=== PATIENT | female | born 1980 | race Caucasian/White ===

== ENCOUNTER 2024-05-04 21:06 | Emergency (ER) | payer BC ==
[2024-05-04] MEDS ORDERED: Zofran 4 MG/2 ML VIAL ONE (21:29)
[2024-05-04] MEDS ORDERED: Sodium Chloride 0.9% 1000 ML 1,000 ML ONE (21:30)
[2024-05-04] MEDS ORDERED: SUBLIMAZE 100 MCG/2 ML ONE (21:30)
[2024-05-04] MEDS: SUBLIMAZE 100 MCG/2 ML IV ONE (21:32)
[2024-05-04] MEDS: Sodium Chloride 0.9% 1000 ML 1,000 ML IV STA (21:32)
[2024-05-04] MEDS: Zofran 4 MG/2 ML VIAL IV ONE (21:32)
[2024-05-04 21:37] LABS: Absolute Neutrophil Ct (ANC) 6.06 x10^3/uL (1.56-6.13); BASOPHIL % 0.3 % (0.1-1.2); Basophil (Absolute #) 0.03 x10^3/uL (0.01-0.08); Eosinophil % 1.6 % (0.7-5.8); Eosinophil (Absolute #) 0.14 x10^3/uL (0.04-0.36); Hematocrit 39.2 % (34.1-44.9); Hemoglobin 12.6 g/dL (11.2-15.7); IMMATURE GRAN # 0.03 x10^3u/L (0.001-0.031); IMMATURE GRAN % 0.3 % (0.001-0.429); Lymphocyte (Absolute #) 2.08 x10^3/uL (1.18-3.74); Lymphocytes % 23.1 % (19.3-51.7); Mean Cell Volume 88.3 fL (79.4-94.8); Mean Corpuscular Hemoglobin 28.4 pg (25.6-32.2); Mean Corpuscular Hgb Concent. 32.1 g/dL (32.2-35.5); Mean Platelet Volume 8.9 fL (9.4-12.3); Monocyte (Absolute #) 0.65 x10^3/uL (0.24-0.86); Monocytes % 7.2 % (4.7-12.5); Neutrophil % 67.5 % (34.0-71.1); Platelet Count 256 x10^3/uL (182-369); Red Blood Count 4.44 x10^6/uL (3.93-5.22); Red Cell Distribution Width 12.8 % (11.7-14.4)
[2024-05-04 22:01] LABS: HCG SERUM TEST NEGATIVE (NEGATIVE)
[2024-05-04 22:10] LABS: ALBUMIN 3.8 g/dL (3.5-5.0); ANION GAP 15.1 MEQ/L (5-15); BILIRUBIN,TOTAL 0.4 mg/dL (0.2-1.3); Calcium 8.9 mg/dL (8.4-10.2); Creatinine 1 0.81 mg/dL (0.52-1.04); EST GLOMERULAR FILTRATION RATE 92.9 ML/MIN; NT PRO BNPII 90.3 pg/mL (<300); Potassium 3.8 mmol/L (3.5-5.1); Total Protein 7.1 g/dL (6.3-8.2)
[2024-05-04 23:16] LABS: Appearance Clear (Clear); Bacteria None Seen /HPF (None Seen); Bilirubin Negative (Negative); Blood Moderate (Negative); Epithelial Cells None Seen /HPF (None Seen); Glucose, Urine >=1000 mg/dL (Negative); Hyaline Casts NONE SEEN /LPF (0-2); Ketones Negative (Negative); Leukocyte Esterase Negative (Negative); Nitrite Negative (Negative); Ph 5.5 (4.6-8.0); Protein,Urine Dip Negative (Negative); Urobilinogen 0.2 mg/dL (0.2); WBC 0-2 /HPF (0-5)
[2024-05-04 23:22] LABS: ADD URINE CULTURE? NO (NO)
--- NOTE | 2024-05-05 00:12 | ERPHSYRPT ---
- History of Present Illness Time Seen by Provider: 05/04/24 21:07 Historian: patient Exam Limitations: no limitations Patient Subjective Stated Complaint: pt states she has been having chest pain all day. pt states pain to rt chest and back Triage Nursing Assessment: pt ambulated into the er; pt is axo x4; c/o chest pain; pt states 10/10 pain to rt side of chest and rt side of back; clear apical heart tones; pt states SOB; clear lung sounds in all lobes; no respiratory distress present; strong edilberto radial pulses; strong edilberto pedal pulses; good cap refill to all extremities; skin PDW; vitals wnl Physician History: 43 years old female with a history of hypertension, hyperlipidemia, morbid obesity presented in the ER with complaint of right-sided chest pain with radiation to the right back with occasional shortness of breath at times. Patient reports moderate to severe sharp pain with aggravation and movements and partial relief with being still. Also reports some pain on the right upper quadrant abdomen with associated nausea but no vomiting. No fever chills or cough reported. No history of coronary artery disease. Aspirin Treatment Today: unknown Allergies/Adverse Reactions: No Known Drug Allergies Allergy (Verified 05/04/24 21:07) Home Medications: Amlodipine Besylate 5 mg PO DAILY 05/04/24 [History] Gabapentin [Neurontin ] 300 mg PO BID 05/04/24 [History] Losartan/Hydrochlorothiazide [Losartan-Hctz 50-12.5 mg Tab] 1 each PO DAILY 05/04/24 [History] Metformin HCl 500 mg [Glucophage 500 MG] 500 mg PO BIDWM 05/04/24 [History] Norgestimate-Ethinyl Estradiol [D[place]hesne-Linyah] 1 each PO DAILY 05/04/24 [History] Hx Tetanus, Diphtheria Vaccination/Date Given: Yes Hx Influenza Vaccination/Date Given: Yes Hx Pneumococcal Vaccination/Date Given: No Immunizations Up to Date: No Travel Risk - International Travel Have you traveled outside of the country in past 3 weeks: No - Emerging Infectious Disease Are you exhibiting symptoms associated with any current EIDs: No - Review of Systems Constitutional: No Symptoms Eyes: No Symptoms Ears, Nose, & Throat: No Symptoms Respiratory: No Symptoms Cardiac: Chest Pain Abdominal/Gastrointestinal: Abdominal Pain, Nausea Genitourinary Symptoms: No Symptoms Musculoskeletal: Back Pain Skin: No Symptoms Neurological: No Symptoms Psychological: No Symptoms Hematologic/Lymphatic: No Symptoms Immunological/Allergic: No Symptoms - Past Medical History Pertinent Past Medical History: Yes Neurological History: Peripheral Neuropathy Cardiac History: Hypertension Endocrine Medical History: Diabetes Type II - Past Surgical History Past Surgical History: Yes Female Surgical History: Tubal Ligation - Female History Hx Last Menstrual Period: ONE MONTH Hx Now: (unkn) - Social History Smoking Status: Former smoker Exposure to second hand smoke: Yes Drug Use: none Patient Lives Alone: No - Social Determinants of Health Will the patient participate in the screening: Yes Do you worry about a steady place to live?: No Do you have any problems with any of the following?: No known problems In the past 12 months,have you had to go without utilities?: No Transportation Issues: No Has anyone in your support network made you feel unsafe?: No Have you or anyone in your house had to go without enough: No - Nursing Vital Signs Nursing Vital Signs: Initial Vital Signs Pulse Rate 88 05/04/24 21:06 Respiratory Rate 18 05/04/24 21:06 Blood Pressure 105/43 05/04/24 21:06 O2 Sat by Pulse Oximetry 98 05/04/24 21:06 Pain Scale Pain Intensity 5 - Physical Exam General Appearance: no apparent distress, alert Eye Exam: PERRL/EOMI Ears, Nose, Throat Exam: normal ENT inspection, pharynx normal Neck Exam: normal inspection, supple, full range of motion Respiratory Exam: normal breath sounds, chest tenderness (Right lower anterior chest wall, right upper quadrant and right lower posterior chest wall. No crepitus.), lungs clear Cardiovascular Exam: regular rate/rhythm, normal heart sounds Gastrointestinal/Abdomen Exam: soft, normal bowel sounds, tenderness (Right upper quadrant) Back Exam: normal inspection Extremity Exam: normal inspection, normal range of motion Neurologic Exam: alert, oriented x 3, cooperative Skin Exam: normal color SpO2 Interpretation: normal SpO2: 98 O2 Delivery: Room Air - Course EKG Interpreted by Me: RATE ([id number]), Sinus Rhythm, NORMAL AXIS, NORMAL INTERVALS, NORMAL QRS Ordered Tests: Medication Summary Discontinued Medications Generic Name Dose Route Start Last Admin Trade Name Freq PRN Reason Stop Dose Admin Fentanyl Citrate 50 mcg 05/04/24 21:23 05/04/24 21:32 Fentanyl Citrate 100 Mcg/2 Ml* Vial IV 05/04/24 21:24 50 mcg STAT ONE Administration Fentanyl Citrate Confirm 05/04/24 21:30 Fentanyl Citrate 100 Mcg/2 Ml* Vial Administered 05/04/24 21:31 Dose 100 mcg .ROUTE .STK-MED ONE Sodium Chloride 1,000 mls @ 999 mls/hr 05/04/24 21:23 05/04/24 22:46 Sodium Chloride 0.9% 1000 Ml IV 05/04/24 22:23 Infused .Q1H1M STA Infusion Sodium Chloride Confirm 05/04/24 21:30 Sodium Chloride 0.9% 1000 Ml Administered 05/04/24 21:31 Dose 1,000 mls @ ud .ROUTE .STK-MED ONE Ketorolac Tromethamine 30 mg 05/05/24 00:30 05/05/24 00:32 Ketorolac Tromethamine 30 Mg/Ml Inj IV 05/05/24 00:31 30 mg STAT ONE Administration Ketorolac Tromethamine Confirm 05/05/24 00:30 Ketorolac Tromethamine 30 Mg/Ml Inj Administered 05/05/24 00:31 Dose 30 mg .ROUTE .STK-MED ONE Ondansetron HCl 4 mg 05/04/24 21:23 05/04/24 21:32 Ondansetron Hcl 4 Mg/2 Ml Vial IV 05/04/24 21:24 4 mg STAT ONE Administration Ondansetron HCl Confirm 05/04/24 21:29 Ondansetron Hcl 4 Mg/2 Ml Vial Administered 05/04/24 21:30 Dose 4 mg .ROUTE .STK-MED ONE Lab/Rad Data: Laboratory Result Diagrams 05/04/24 21:30 05/04/24 21:30 Laboratory Results 05/05/24 05/04/24 05/04/24 Range/Units 00:26 23:00 21:36 WBC (3.98-10.04) x10^3/uL RBC (3.93-5.22) x10^6/uL Hgb (11.2-15.7) g/dL Hct (34.1-44.9) % MCV (79.4-94.8) fL MCH (25.6-32.2) pg MCHC (32.2-35.5) g/dL RDW (11.7-14.4) % Plt Count (182-369) x10^3/uL MPV (9.4-12.3) fL Gran % (34.0-71.1) % Immature Gran % (Auto) (0.001-0.429) % Nucleat RBC Rel Count (0.00-0.2) % Eos # (Auto) (0.04-0.36) x10^3/uL Immature Gran # (Auto) (0.001-0.031) x10^3u/L Absolute Lymphs (auto) (1.18-3.74) x10^3/uL Absolute Monos (auto) (0.24-0.86) x10^3/uL Absolute Nucleated RBC (0.00-0.012) x10^3u/L Lymphocytes % (19.3-51.7) % Monocytes % (4.7-12.5) % Eosinophils % (0.7-5.8) % Basophils % (0.1-1.2) % Absolute Granulocytes (1.56-6.13) x10^3/uL Basophils # (0.01-0.08) x10^3/uL D-Dimer 0.46 (0.0-0.50) mg/L Sodium (135-145) mmol/L Potassium (3.5-5.1) mmol/L Chloride (98-107) mmol/L Carbon Dioxide (22-30) mmol/L Anion Gap (5-15) MEQ/L BUN (7-17) mg/dL Creatinine (0.52-1.04) mg/dL Estimated GFR ML/MIN Glucose (74-106) mg/dL Calcium (8.4-10.2) mg/dL Total Bilirubin (0.2-1.3) mg/dL AST (14-36) U/L ALT (0-35) U/L Alkaline Phosphatase (38-126) U/L Troponin 0.00 (0.00-0.03) ng/mL NT-Pro-B Natriuret Pep (<300) pg/mL Serum Total Protein (6.3-8.2) g/dL Albumin (3.5-5.0) g/dL Lipase (23-300) U/L Serum HCG, Qual (NEGATIVE) Urine Color Yellow (Yellow) Urine Appearance Clear (Clear) Urine pH 5.5 (4.6-8.0) Ur Specific [place] 1.020 (1.005-1.030) Urine Protein Negative (Negative) Urine Glucose (UA) >=1000 A (Negative) mg/dL Urine Ketones Negative (Negative) Urine Blood Moderate A (Negative) Urine Nitrite Negative (Negative) Urine Bilirubin Negative (Negative) Urine Urobilinogen 0.2 (0.2) mg/dL Ur Leukocyte Esterase Negative (Negative) U Hyaline Cast (Auto) NONE SEEN (0-2) /LPF Urine Microscopic RBC 6-10 A (0-5) /HPF Urine Microscopic WBC 0-2 (0-5) /HPF Ur Epithelial Cells None Seen (None Seen) /HPF Uric Acid Crystals 11-25 A (None Seen) /HPF Urine Bacteria None Seen (None Seen) /HPF Urine Culture Reflexed NO (NO) 05/04/24 05/04/24 05/04/24 Range/Units 21:30 21:30 21:30 WBC (3.98-10.04) x10^3/uL RBC (3.93-5.22) x10^6/uL Hgb (11.2-15.7) g/dL Hct (34.1-44.9) % MCV (79.4-94.8) fL MCH (25.6-32.2) pg MCHC (32.2-35.5) g/dL RDW (11.7-14.4) % Plt Count (182-369) x10^3/uL MPV (9.4-12.3) fL Gran % (34.0-71.1) % Immature Gran % (Auto) (0.001-0.429) % Nucleat RBC Rel Count (0.00-0.2) % Eos # (Auto) (0.04-0.36) x10^3/uL Immature Gran # (Auto) (0.001-0.031) x10^3u/L Absolute Lymphs (auto) (1.18-3.74) x10^3/uL Absolute Monos (auto) (0.24-0.86) x10^3/uL Absolute Nucleated RBC (0.00-0.012) x10^3u/L Lymphocytes % (19.3-51.7) % Monocytes % (4.7-12.5) % Eosinophils % (0.7-5.8) % Basophils % (0.1-1.2) % Absolute Granulocytes (1.56-6.13) x10^3/uL Basophils # (0.01-0.08) x10^3/uL D-Dimer (0.0-0.50) mg/L Sodium 135 (135-145) mmol/L Potassium 3.8 (3.5-5.1) mmol/L Chloride 101 (98-107) mmol/L Carbon Dioxide 22 (22-30) mmol/L Anion Gap 15.1 H (5-15) MEQ/L BUN 18 H (7-17) mg/dL Creatinine 0.81 (0.52-1.04) mg/dL Estimated GFR 92.9 ML/MIN Glucose 308 H (74-106) mg/dL Calcium 8.9 (8.4-10.2) mg/dL Total Bilirubin 0.40 (0.2-1.3) mg/dL AST 35 (14-36) U/L ALT 28 (0-35) U/L Alkaline Phosphatase 53 (38-126) U/L Troponin 0.00 (0.00-0.03) ng/mL NT-Pro-B Natriuret Pep 90.3 (<300) pg/mL Serum Total Protein 7.1 (6.3-8.2) g/dL Albumin 3.8 (3.5-5.0) g/dL Lipase 154 (23-300) U/L Serum HCG, Qual NEGATIVE (NEGATIVE) Urine Color (Yellow) Urine Appearance (Clear) Urine pH (4.6-8.0) Ur Specific [place] (1.005-1.030) Urine Protein (Negative) Urine Glucose (UA) (Negative) mg/dL Urine Ketones (Negative) Urine Blood (Negative) Urine Nitrite (Negative) Urine Bilirubin (Negative) Urine Urobilinogen (0.2) mg/dL Ur Leukocyte Esterase (Negative) U Hyaline Cast (Auto) (0-2) /LPF Urine Microscopic RBC (0-5) /HPF Urine Microscopic WBC (0-5) /HPF Ur Epithelial Cells (None Seen) /HPF Uric Acid Crystals (None Seen) /HPF Urine Bacteria (None Seen) /HPF Urine Culture Reflexed (NO) 05/04/24 Range/Units 21:30 WBC 9.0 (3.98-10.04) x10^3/uL RBC 4.44 (3.93-5.22) x10^6/uL Hgb 12.6 (11.2-15.7) g/dL Hct 39.2 (34.1-44.9) % MCV 88.3 (79.4-94.8) fL MCH 28.4 (25.6-32.2) pg MCHC 32.1 L (32.2-35.5) g/dL RDW 12.8 (11.7-14.4) % Plt Count 256 (182-369) x10^3/uL MPV 8.9 L (9.4-12.3) fL Gran % 67.5 (34.0-71.1) % Immature Gran % (Auto) 0.3 (0.001-0.429) % Nucleat RBC Rel Count 0.0 (0.00-0.2) % Eos # (Auto) 0.14 (0.04-0.36) x10^3/uL Immature Gran # (Auto) 0.03 (0.001-0.031) x10^3u/L Absolute Lymphs (auto) 2.08 (1.18-3.74) x10^3/uL Absolute Monos (auto) 0.65 (0.24-0.86) x10^3/uL Absolute Nucleated RBC 0.00 (0.00-0.012) x10^3u/L Lymphocytes % 23.1 (19.3-51.7) % Monocytes % 7.2 (4.7-12.5) % Eosinophils % 1.6 (0.7-5.8) % Basophils % 0.3 (0.1-1.2) % Absolute Granulocytes 6.06 (1.56-6.13) x10^3/uL Basophils # 0.03 (0.01-0.08) x10^3/uL D-Dimer (0.0-0.50) mg/L Sodium (135-145) mmol/L Potassium (3.5-5.1) mmol/L Chloride (98-107) mmol/L Carbon Dioxide (22-30) mmol/L Anion Gap (5-15) MEQ/L BUN (7-17) mg/dL Creatinine (0.52-1.04) mg/dL Estimated GFR ML/MIN Glucose (74-106) mg/dL Calcium (8.4-10.2) mg/dL Total Bilirubin (0.2-1.3) mg/dL AST (14-36) U/L ALT (0-35) U/L Alkaline Phosphatase (38-126) U/L Troponin (0.00-0.03) ng/mL NT-Pro-B Natriuret Pep (<300) pg/mL Serum Total Protein (6.3-8.2) g/dL Albumin (3.5-5.0) g/dL Lipase (23-300) U/L Serum HCG, Qual (NEGATIVE) Urine Color (Yellow) Urine Appearance (Clear) Urine pH (4.6-8.0) Ur Specific [place] (1.005-1.030) Urine Protein (Negative) Urine Glucose (UA) (Negative) mg/dL Urine Ketones (Negative) Urine Blood (Negative) Urine Nitrite (Negative) Urine Bilirubin (Negative) Urine Urobilinogen (0.2) mg/dL Ur Leukocyte Esterase (Negative) U Hyaline Cast (Auto) (0-2) /LPF Urine Microscopic RBC (0-5) /HPF Urine Microscopic WBC (0-5) /HPF Ur Epithelial Cells (None Seen) /HPF Uric Acid Crystals (None Seen) /HPF Urine Bacteria (None Seen) /HPF Urine Culture Reflexed (NO) - Progress Progress: improved Air Movement: good Progress Note: 05/05/24 01:34 43 years old is evaluated for right-sided chest pain with no obvious difficulty breathing. Patient has no history of coronary artery disease. EKG is normal sinus rhythm with no acute ischemic changes. She is given symptomatic treatment, on reevaluation her pain is much improved. Chest x-ray questionable right-sided airspace disease reviewed by me, official report is pending. Negative troponins. Patient has normal white count and fairly unremarkable chemistries. Because of her pain in the right upper quadrant as well I have obtained CT chest abdomen pelvis as well. CT chest is negative for PE or any other acute intrathoracic finding. CT abdomen pelvis showed cholelithiasis and hepatomegaly with no signs symptoms suggesting acute cholecystitis. Patient is feeling better on reevaluation after Toradol and fentanyl along with fluids. Second troponin is negative as well. Duration of pain and 2 negative troponin and CTs, pain does not seem cardiac, atypical for CAD, recommended outpatient follow-up. This pain could be biliary colic but no acute cholecystitis. Discussed signs symptoms of worsening needing return to ER which patient seems understanding. Stable for discharge. Blood Culture(s) Obtained: No Antibiotics given: No Counseled pt/family regarding: lab results, diagnosis, need for follow-up, rad results Medical Desision Making - Independent Historian Additional History obtained from: Spouse - Diagnostic Testing Diagnostic test were ordered, analyzed, and reviewed by me: Yes Radiological Interpretation: Interpreted by me, Reviewed by me, Teleradiologist Report - Risk of complications The pt has a mod risk of morbidity or mortality based on: Need for prescription drug management - Departure Departure Disposition: Home Clinical Impression: Atypical chest pain, Cholelithiasis Condition: Stable Critical Care Time: No Referrals: ISABELLA LUCIANO MD [Primary Care Provider] - Follow up with PCP 1 day DAX NICE [CONSULTING PHYSICIAN] - Follow up/PCP as directed (call for appointment) Instructions: Angina (DC), Chest Pain (DC) Additional Instructions: Follow-up with primary care/cardiology for reevaluation. Take Tylenol as needed. Return to ER for any worsening.
[2024-05-05] MEDS ORDERED: TORAdol 30 mg Injection ONE (00:30)
[2024-05-05] MEDS: TORAdol 30 mg Injection IV ONE (00:32)
[2024-05-05 01:02] VITALS: RESP 22
--- NOTE | 2024-05-05 01:11 | XRAY ---
CLINICAL HISTORY: ruq/rght side chest pain COMPARISON: None. TECHNIQUE: A CT scan of the abdomen and pelvis was performed with IV contrast. Coronal and sagittal reconstructive images were also obtained. One of the following dose-reduction techniques was utilized for this exam. Automated exposure control, adjustment of the mA and/or kV according to patient size, and use of iterative reconstruction. FINDINGS: Abdomen: The liver appears enlarged measuring 230 mm in craniocaudal dimension with diffusely reduced parenchymal attenuation representing fatty infiltration. No focal parenchymal abnormality. The portal vein, intrahepatic biliary radicals, and the bile ducts are normal. The spleen, pancreas, and adrenal glands are unremarkable. The kidneys are unremarkable. They are normal in size and shape. No calculi or hydronephrosis. The gallbladder is suboptimally distended with intraluminal gallstones. No evidence of pericholecystic fluid or fat stranding. The ascending colon, the transverse colon, the descending colon, and the visualized small bowel loops are unremarkable. The appendix is separately visualized and is normal in caliber without features of acute appendicitis There is no evidence of significant enlargement of the mesenteric or retroperitoneal lymph nodes. Pelvis: The urinary bladder is unremarkable. The rectosigmoid colon is unremarkable. The uterus and both ovaries appear grossly unremarkable. The pelvic vasculature is unremarkable. No evidence of pelvic lymphadenopathy. Using appropriate bone window settings, mild degenerative changes are identified in the visualized spine. At L3-L4 and L4-L5 levels there are posterior disc osteophyte complexes in combination with mild facet arthropathy resulting in canal stenosis along with bilateral neural foraminal stenosis. Using appropriate lung windows settings, visualized lung bases are clear. IMPRESSION: 1. Cholelithiasis without features of acute cholecystitis. 2. Hepatomegaly with diffuse hepatic steatosis. 3. Spondylotic changes in the visualized spine with posterior disc osteophyte complexes at L3-L4 and L4-L5 levels in combination with facet arthropathy resulting in moderate canal stenosis along with moderate to severe bilateral neural foraminal stenosis. If clinically indicated, MRI of the lumbar spine is recommended for further evaluation. Electronically Signed by: Akosua Hernandez MD. (05/05/2024 01:06:35 EDT)
--- NOTE | 2024-05-05 01:15 | XRAY ---
CLINICAL HISTORY: right side pain COMPARISON: None. TECHNIQUE: Axial CT images of the chest were acquired with the administration of intravenous contrast. Coronal and sagittal reconstructions were obtained. One of the following dose reduction techniques was utilized for this exam.Automated exposure control, adjustment of the mA and/or kV according to patient size, and use of iterative reconstruction. FINDINGS: The scanned pulmonary parenchyma shows no definite consolidative lesions. No free or encysted pleural effusion. Heart size is normal, and there is no pericardial effusion. No pathologically enlarged mediastinal, hilar, or axillary lymph node was identified. There is no definite mass lesion in the chest wall. Degenerative changes are identified in the visualized spine. A scanned upper abdomen reveals cholelithiasis without features of acute cholecystitis. Hepatomegaly with diffuse hepatic steatosis. IMPRESSION: No acute cardiopulmonary pathology identified. Electronically Signed by: Akosua Hernandez MD. (05/05/2024 01:11:14 EDT)
[2024-05-05 01:43] VITALS: BP 153/86; PULSE 90
[2024-05-05 06:49] VITALS: O2SAT 98
--- NOTE | 2024-05-05 08:47 | XRAY ---
Indication: Chest pain. Comparison: October 15, 2009 Portable chest again demonstrates normal heart and lungs. Bony thorax intact.
== END 2024-05-05 01:42 | disposition home or self-care (01) ==
LOC: ED 21:06
DX: R07.89 Other chest pain (principal); K80.20 Calculus of gallbladder without cholecystitis without obstruction; R10.11 Right upper quadrant pain; R11.0 Nausea; I10 Essential (primary) hypertension; E78.5 Hyperlipidemia, unspecified; E11.42 Type 2 diabetes mellitus with diabetic polyneuropathy; Z79.84 Long term (current) use of oral hypoglycemic drugs; Z79.899 Other long term (current) drug therapy
CPT/HCPCS: 36000; 36415; 71045; 71260; 74177; 80053; 81001; 83690; 83880; 84484; 84703; 85025; 85379; 93005; 96360; 96374; 96375; 99284; J1885; J2405; J3010